=== PATIENT | female | born 1945 | race Caucasian/White ===

== ENCOUNTER 2019-11-01 08:53 | Inpatient (IN) | payer MEDICARE ==
[~2019-11-01 08:53] MED LIST: Naloxone 0.4 MG/ML SDV IVPUSH PRN
[2019-11-01] MEDS ORDERED: Dexamethasone 4 MG/ML SDV ONE (09:10)
[2019-11-01] MEDS ORDERED: Succinylcholine 200 MG/10 ML MDV ONE (09:10)
[2019-11-01] MEDS ORDERED: Propofol 200 MG/20 ML SDV ONE (09:10)
[2019-11-01] MEDS ORDERED: Neostigmine Methylsulfate 1 MG/ML 5 ML Syringe ONE (09:10)
[2019-11-01] MEDS ORDERED: Glycopyrrolate 0.2 MG/ML 5 ML MDV ONE (09:10)
[2019-11-01] MEDS ORDERED: Rocuronium 50 MG/5 ML Vial ONE (09:10)
[2019-11-01] MEDS ORDERED: Ondansetron 4 MG/2 ML SDV ONE (09:10)
[2019-11-01] MEDS ORDERED: fentaNYL 250 MCG/5 ML SDV ONE ×2 (09:11→12:38)
[2019-11-01] MEDS ORDERED: Sodium Chloride 0.9% 10 ML ONE (09:12)
[2019-11-01] MEDS ORDERED: fentaNYL 100 MCG/2 ML SDV ONE (09:12)
[2019-11-01] MEDS ORDERED: Sodium Chloride 0.9% 10 ML SDV IV ONE (09:30)
[2019-11-01] MEDS: Sodium Chloride 0.9% 1,000 ML IV SCH ×2 (09:58→17:42)
[2019-11-01] MEDS ORDERED: ceFAZolin 2 GM in Premix Bag 1 BAG IV ONE (10:15)
[2019-11-01] MEDS ORDERED: Lactated Ringers 1,000 ML ONE ×2 (12:32→13:43)
[2019-11-01] MEDS: metroNIDAZOLE/Normal Saline 500 MG in Premix Bag 1 BAG IV ONE ×2 (12:35→17:36)
[2019-11-01] MEDS ORDERED: ePHEDrine 50 MG/ML SDV ONE (13:31)
[2019-11-01] MEDS ORDERED: Metoclopramide 10 MG/2 ML SDV IV PRN (15:25)
[2019-11-01] MEDS ORDERED: Scopolamine 1.5 MG Transdermal Patch TOP SCH (16:00)
[2019-11-01] MEDS: fentaNYL 2,500 MCG in Sodium Chloride 0.9% 200 ML EPIDUR SCH (16:41)
[2019-11-01] MEDS ORDERED: Naloxone 0.4 MG/ML SDV IV PRN (16:56)
[2019-11-01] MEDS ORDERED: diphenhydrAMINE 50 MG/ML SDV IVPUSH PRN (16:56)
[2019-11-01] MEDS: Celecoxib 200 MG Cap PO SCH (17:37)
[2019-11-01] MEDS ORDERED: Sodium Chloride 0.9% 250 ML IV SCH ×3 (18:45→23:45)
[2019-11-02] MEDS ORDERED: Sodium Chloride 0.9% 250 ML IV SCH (04:45)
[2019-11-02] MEDS: Sodium Chloride 0.9% 1,000 ML IV SCH ×2 (05:14→19:30)
[2019-11-02] MEDS: Celecoxib 200 MG Cap PO SCH (08:14)
[2019-11-02] MEDS: SCOPOLAMINE PATCH CHECK TOP SCH (08:14)
[2019-11-02] MEDS: Piperacillin/Tazobactam/Dext 3.375 GM in Premix Bag 1 BAG IV SCH ×3 (09:11→20:38)
[2019-11-02] MEDS: fentaNYL 2,500 MCG in Sodium Chloride 0.9% 200 ML EPIDUR SCH (11:45)
--- NOTE | 2019-11-02 11:49 | OR ---
DATE OF PROCEDURE: 11/01/2019 SURGEON: Reinaldo Marino MD PROCEDURE: 1. Total mesorectal excision. 2. Excision of mass, omentum. 3. Mobilization of splenic flexure. PATHOLOGY: 1. Rectum, single stitch placed superiorly. 2. Omental implant. PREOPERATIVE DIAGNOSIS: 1. Rectal cancer. 2. Status post radiation. POSTOPERATIVE DIAGNOSIS: 1. Rectal cancer. 2. Status post radiation. COMPLICATION: None. RETAIL ROUTE SUPERVISOR: None. ANESTHETIC: Epidural/general. RISKS: Risks, benefits, alternatives, and limitations including, but not limited to, infection, bleeding, injury to abdominal structures such as bowel, bladder, blood vessels, ureter were explained to the patient. We also discussed leaks, septic shock, cardiovascular issues, DVT formation, complications of epidural, and other risks not listed here. The patient understands these risks and wished to proceed. PROCEDURE IN DETAIL: The patient was placed in supine position. Previous midline incision was opened. This was carried down with electrocautery. Two Jake clamps were used to elevate the peritoneum. The abdomen was entered sharply, and no abnormalities were noted. Dissection of omentum, which was noted to be adherent to the peritoneal cavity in the lower pelvis, was then performed. During this process, an omental implant would be noted. This was resected using Harmonic scalpel and will be sent for pathological evaluation. Mobilization of splenic flexure was then commenced next. This was performed by opening up the avascular line of Toldt along the left side. This allowed the sigmoid colon and descending colon to be further mobilized. To create an avascular anastomosis, the adherence to the splenic flexor was taken down. No interaction with spleen was noted at any time. Once this was further mobilized, the rectal tumor was identified. The sigmoid colon was then transected using a purple load stapler. This was transected and the associated mesentery was taken down with mesenteric loads. There was a significant amount of adhesions noted in the pelvis compared to typical surgeries and had radiation/chemo response. The total mesorectal excision was then continued on in a standard fashion with dissection of the appropriate planes. The sacrum was then skived along, keeping its fat and venous plexus intact. The tumor was palpated and greater than 2 cm distal to this would be transected with a curved locking stapler. A single stitch would be placed in the specimen to designate the superior aspect. This was then sent to pathology. The abdomen was inspected for bleeding, which was none noted. Potter contained no blood and adequate urine output. A 28 EEA stapler was then used. This was opened. The anvil was then placed in the remaining sigmoid colon. This was then brought through. The stapler was then placed in the rectum and then to the anvil piece and then fired. Good david were noted, and complete donuts were noted. Tisseel was then placed around the anastomosis, no drains were placed. The abdomen was then irrigated again. Omentum was then placed back into the abdomen. The fascia was closed with #1 Vicryl in a running fashion x2. Skin was approximated and closed with david. The patient tolerated the procedure well. Reinaldo Marino MD /[id number]
--- NOTE | 2019-11-02 12:01 | PN ---
DATE OF SERVICE: 11/02/2019 SUBJECTIVE: The patient is doing well today. Pain is still an issue, but is being addressed by Anesthesia. No nausea, vomiting, shortness of breath, or chest pain. OBJECTIVE: VITAL SIGNS: Stable. She is afebrile. CARDIOVASCULAR: Regular rhythm and rate. RESPIRATORY: Lungs are clear to auscultation bilaterally. ABDOMEN: Dressing is intact. ASSESSMENT: Status post colon resection. PLAN: 1. GI: Will continue the full liquid diet today. No GI activity yet. Continue Entereg. 2. Prophylaxis: I anticipate removal of epidural soon. We will hold on Lovenox at this time, due to that reason. 3. Genitourinary: Making adequate urine. 4. Infectious disease: There was some small amount of contamination during the procedure, and she does have an elevated white count, which could be obviously contributing to the postoperative status. However, we will start her on some antibiotics for short-term to prevent any abscess formation. Reinaldo Marino MD /[id number]
[2019-11-02] MEDS: Ibuprofen 600 MG Tab PO PRN (19:50)
[2019-11-02] MEDS: Ondansetron 4 MG Tab.DIS PO PRN (20:38)
[2019-11-02] MEDS: Gabapentin 300 MG Cap PO SCH (21:17)
[2019-11-02] MEDS ORDERED: Vancomycin 1 GM SDV IV SCH (22:00)
[2019-11-03] MEDS: Piperacillin/Tazobactam/Dext 3.375 GM in Premix Bag 1 BAG IV SCH ×4 (02:12→20:28)
[2019-11-03] MEDS ORDERED: oxyCODONE 5 MG Tab PO PRN (08:08)
[2019-11-03] MEDS ORDERED: fentaNYL 100 MCG/2 ML SDV IVPUSH PRN (08:09)
[2019-11-03] MEDS: Celecoxib 200 MG Cap PO SCH (08:39)
[2019-11-03] MEDS: Gabapentin 300 MG Cap PO SCH ×2 (08:39→13:29)
--- NOTE | 2019-11-03 10:10 | CR ---
CHEST: 2 view CLINICAL HISTORY:Fever COMPARISON:None FINDINGS: The heart size, pulmonary vascularity and hilar structures are normal. No infiltrate effusion or pneumothorax is seen. There are atherosclerotic changes in the aorta. There is minimal streaky atelectasis or scarring at the left lung base. IMPRESSION: No acute cardiopulmonary process.
[2019-11-03] MEDS: SCOPOLAMINE PATCH CHECK TOP SCH (11:13)
[2019-11-03] MEDS: Sodium Chloride 0.9% 1,000 ML IV SCH (13:44)
[2019-11-03] MEDS ORDERED: Albuterol 0.083% 2.5 MG/3 ML Neb Soln INH PRN (15:32)
[2019-11-03] MEDS: ALPRAZolam 0.5 MG Tab PO PRN (16:14)
[2019-11-03] MEDS: Ondansetron 4 MG Tab.DIS PO PRN (17:11)
[2019-11-03] MEDS: Acetaminophen/HYDROcodone 325-5 MG Tab PO PRN (20:27)
[2019-11-03] MEDS: Nystatin Crm 15 GM Tube TOP SCH (20:32)
[2019-11-03] MEDS: Hydrocortisone 2.5% Crm 30 GM Tube TOP SCH (20:32)
[2019-11-03] MEDS: Triamcinolone Acetonide 0.1% Crm 15 GM Tube TOP SCH (20:33)
[2019-11-04] MEDS: Acetaminophen/HYDROcodone 325-5 MG Tab PO PRN ×5 (01:58→22:28)
[2019-11-04] MEDS: Piperacillin/Tazobactam/Dext 3.375 GM in Premix Bag 1 BAG IV SCH ×4 (02:00→21:14)
[2019-11-04] MEDS: Sodium Chloride 0.9% 1,000 ML IV SCH (04:20)
[2019-11-04] MEDS: Pantoprazole 40 MG Tab.CR PO SCH (07:21)
[2019-11-04] MEDS: Loratadine 10 MG Tab PO SCH (08:09)
[2019-11-04] MEDS: Celecoxib 200 MG Cap PO SCH (08:09)
[2019-11-04] MEDS: Magnesium Oxide 400 MG Tab PO SCH (08:09)
[2019-11-04] MEDS: Fluconazole 150 MG Tab PO SCH (08:09)
[2019-11-04] MEDS: Enoxaparin 40 MG/0.4 ML Syringe SUBCUT SCH (08:09)
[2019-11-04] MEDS: Triamcinolone Acetonide 0.1% Crm 15 GM Tube TOP SCH ×2 (08:10→21:11)
[2019-11-04] MEDS: Hydrocortisone 2.5% Crm 30 GM Tube TOP SCH ×2 (08:11→21:08)
[2019-11-04] MEDS: SCOPOLAMINE PATCH CHECK TOP SCH (08:11)
[2019-11-04] MEDS: Nystatin Crm 15 GM Tube TOP SCH ×2 (08:11→21:11)
--- NOTE | 2019-11-04 12:24 | PN ---
DATE OF SERVICE: 11/03/2019 SUBJECTIVE: The patient continues to improve. Pain is still an issue, however, is improving. No nausea, vomiting, shortness of breath, or chest pain. She is having bowel movements. OBJECTIVE: VITAL SIGNS: Stable. She is afebrile. CARDIOVASCULAR: Regular rhythm and rate. RESPIRATORY: Lungs clear to auscultation bilaterally. SKIN: Incision healing well ASSESSMENT: Status post rectal resection. PLAN: We will switch her to [place]. We will recheck her hemoglobin in the morning. Continue antibiotics and advance her diet. Reinaldo Marino MD /[id number]
--- NOTE | 2019-11-04 15:51 | US ---
Abdomen Ltd CLINICAL HISTORY: Swelling at abdominal incision FINDINGS: Real-time images are obtained through the lower abdomen. There is an area of heterogeneity near the lower portion of the abdominal wall incision. No significant fluid collection was identified. IMPRESSION: No mass or hematoma
[2019-11-04] MEDS: Ibuprofen 600 MG Tab PO PRN (16:36)
[2019-11-04] MEDS: ALPRAZolam 0.5 MG Tab PO PRN (22:29)
[2019-11-05] MEDS: Acetaminophen/HYDROcodone 325-5 MG Tab PO PRN ×5 (02:14→20:39)
[2019-11-05] MEDS: Piperacillin/Tazobactam/Dext 3.375 GM in Premix Bag 1 BAG IV SCH ×4 (02:14→20:39)
[2019-11-05] MEDS: Loratadine 10 MG Tab PO SCH (08:23)
[2019-11-05] MEDS: Enoxaparin 40 MG/0.4 ML Syringe SUBCUT SCH (08:23)
[2019-11-05] MEDS: Pantoprazole 40 MG Tab.CR PO SCH (08:23)
[2019-11-05] MEDS: Fluconazole 150 MG Tab PO SCH (08:23)
[2019-11-05] MEDS: Celecoxib 200 MG Cap PO SCH (08:23)
[2019-11-05] MEDS: Magnesium Oxide 400 MG Tab PO SCH (08:24)
[2019-11-05] MEDS: SCOPOLAMINE PATCH CHECK TOP SCH (08:24)
[2019-11-05] MEDS: Nystatin Crm 15 GM Tube TOP SCH ×2 (08:25→20:43)
[2019-11-05] MEDS: Triamcinolone Acetonide 0.1% Crm 15 GM Tube TOP SCH ×2 (08:26→20:42)
[2019-11-05] MEDS: Hydrocortisone 2.5% Crm 30 GM Tube TOP SCH ×2 (08:26→20:43)
--- NOTE | 2019-11-05 10:37 | PN ---
DATE OF SERVICE: 11/05/2019 SUBJECTIVE: The patient is doing quite well. Pain is well controlled. No nausea, vomiting, shortness of breath, or chest pain. She is having bowel movements. OBJECTIVE: VITAL SIGNS: Stable. She is afebrile. CARDIOVASCULAR: Regular rhythm and rate. RESPIRATORY: Lungs clear to auscultation bilaterally. SKIN: Incision healing well. Very small amount of bruising in the inferior aspect. ASSESSMENT: Status post colon resection. PLAN: 1. Hematology. We will transfuse 1 unit packed red blood cells. Her hemoglobin did drop from 7.3 to 7.1, which is slowing the trend. 2. Diet. Continue regular diet. 3. Infectious disease. White blood cell count remains normal. She is also afebrile. Anticipate discharge in a.m. Reinaldo Marino MD /[id number]
[2019-11-05] MEDS: ALPRAZolam 0.5 MG Tab PO PRN (22:34)
[2019-11-06] MEDS: Acetaminophen/HYDROcodone 325-5 MG Tab PO PRN ×3 (02:42→11:19)
[2019-11-06] MEDS: Piperacillin/Tazobactam/Dext 3.375 GM in Premix Bag 1 BAG IV SCH ×2 (02:43→09:01)
[2019-11-06] MEDS: Pantoprazole 40 MG Tab.CR PO SCH (07:38)
[2019-11-06] MEDS: Loratadine 10 MG Tab PO SCH (09:00)
[2019-11-06] MEDS: Fluconazole 150 MG Tab PO SCH (09:00)
[2019-11-06] MEDS: Magnesium Oxide 400 MG Tab PO SCH (09:00)
[2019-11-06] MEDS: Enoxaparin 40 MG/0.4 ML Syringe SUBCUT SCH (09:00)
[2019-11-06] MEDS: Celecoxib 200 MG Cap PO SCH (09:00)
[2019-11-06] MEDS: Triamcinolone Acetonide 0.1% Crm 15 GM Tube TOP SCH (09:01)
[2019-11-06] MEDS: Hydrocortisone 2.5% Crm 30 GM Tube TOP SCH (09:01)
[2019-11-06] MEDS: Nystatin Crm 15 GM Tube TOP SCH (09:01)
[2019-11-06] MEDS: SCOPOLAMINE PATCH CHECK TOP SCH (09:01)
--- NOTE | 2019-11-06 13:53 | PN ---
DATE OF SERVICE: 11/06/2019 SUBJECTIVE: The patient doing very well today. Pain is well controlled. No nausea, vomiting, shortness of breath, or chest pain. She is having bowel movements. OBJECTIVE: VITAL SIGNS: Stable. Afebrile. CARDIOVASCULAR: Regular rhythm and rate. RESPIRATORY: Lungs clear to auscultation bilaterally. SKIN: Incision is healing well. ASSESSMENT: Status post rectal resection. PLAN: The patient will be discharged today if her pending hemoglobin is greater than 7.3. Please see discharge summary for further details. Reinaldo Marino MD /[id number]
--- NOTE | 2019-11-08 19:18 | DISCH ---
DISCHARGE DIAGNOSIS: Status post rectal resection for rectal carcinoma. SUMMARY OF HOSPITAL COURSE: A pleasant, 73-year-old female who underwent an uneventful rectal resection. The patient was sent through the fast-track program. She underwent epidural, along with initial diet which was started within hours of surgery. The patient continued to advance through the diet, and prior to discharge, she was on a regular diet. No nausea, vomiting, shortness of breath, or chest pain. She had some postoperative fever, which may be attributed to atelectasis. Nonetheless, she was started on Zosyn and subsequent vancomycin. The white blood cell count then returned to normal for greater than 48 hours. She also had no fever for greater than 48 hours. FOLLOWUP: With Surgery in 7 to 14 days. ACTIVITY: No lifting greater than 30 pounds x30 days. DISCHARGE MEDICATIONS: Please see MAR.
== END 2019-11-06 11:35 | disposition home or self-care (01) | DRG 334 ==
LOC: JP.SDS 08:53 → JP.MS 08:53 → EDSTATUS 09:00 → JP.2SS 15:25 → JP.MS 11-03 18:48
PROVIDERS: ADMIT Surgery; ATTEND Surgery
PROC: 0DBP0ZZ Excision of Rectum, Open Approach (ICD-10-PCS; principal; 2019-11-01)
PROC: 0DBU0ZZ Excision of Omentum, Open Approach (ICD-10-PCS; 2019-11-01)
DX: C20 Malignant neoplasm of rectum (principal); K21.9 Gastro-esophageal reflux disease without esophagitis; I10 Essential (primary) hypertension; Z90.49 Acquired absence of other specified parts of digestive tract; Z90.710 Acquired absence of both cervix and uterus; Z79.891 Long term (current) use of opiate analgesic; Z88.2 Allergy status to sulfonamides; Z88.6 Allergy status to analgesic agent
CPT/HCPCS: 36415; 36430; 71046; 71046-26; 76705; 76705-26; 80048; 80202; 81001; 85018; 85025; 85027; 86850; 86900; 86901; 86920; 86922; 88305; 88309; A9270-GY; J0330; J0690; J1100; J1650; J2405; J2543; J2704; J2710; J2765; J3010; J3370; J3490; J7030; J7050; J7120; P9016